=== PATIENT | male | born 1945 | race Caucasian/White ===

== ENCOUNTER 2020-01-05 07:10 | Day surgery (SDC) | payer OTHER ==
[~2020-01-05] VITALS: Ht 180.3 cm; Wt 88.9 kg
--- NOTE | ~2020-01-05 | O ---
[facility] [place] [address] OPERATIVE REPORT Name: VIVIAN ST Room #: 150-13 [facility]#: [id number] Admission: 01/05/20 Attend Phys: Dev Florez MD Discharge: Date of : 43 Report #: [id number] THIS REPORT FOR: cc: Tk Hickman, Tk Arzola,Dev Ramirez MD ~ CC: Tk Fletcher DATE OF SERVICE: 01/05/2020 PREOPERATIVE DIAGNOSIS: Lesion of right lower lid with right lower lid ectropion. POSTOPERATIVE DIAGNOSIS: Lesion of right lower lid with right lower lid ectropion. PROCEDURES: 1. Excision of lesion of right lower lid with myocutaneous flap repair of defect. 2. Right lower lid ectropion repair by flap. SURGEON: Dev Florez MD. CUSTODIAN [employer]OD BANK: None. ANESTHESIA: MAC. COMPLICATIONS: None. INDICATIONS FOR SURGERY: This pleasant 74-year-old gentleman has what appears to be a benign lesion in his medial left lower lid below his inferior canaliculus. The lesion is of considerable size and inducing a mechanical distraction of the lid. In addition, the patient independently has a right lower lid ectropion. He presents today for excision of the right lower lid lesion with repair of that defect along with a right lower lid ectropion repair by myocutaneous advancement flap. Informed consent was obtained to include but not limited to the potential risk for loss of vision, bleeding, infection, failure to improve the problem, and the potential need for further surgery or treatment. DESCRIPTION OF PROCEDURE: The patient was taken to the operating room where 2% Xylocaine with epinephrine mixed with equal parts of 0.75% Marcaine with [place] [address] [address] OPERATIVE REPORT Name: VIVIAN ST Room #: 150-13 [facility]#: [id number] Admission: 01/05/20 Attend Phys: Dev Florez MD Discharge: Date of : 43 Report #: [id number] was administered transcutaneously and transconjunctivally to the right lower lid, the right medial canthus, the right lateral canthus, the right cheek and the right infratemporal fossa. The patient was subsequently prepped and draped in the usual sterile fashion. Attention was first turned to the lesion in the medial right lower lid. An incision was made around the lesion 360 degrees allowing access to its capsule. The capsule was then isolated around the entire perimeter of the lesion ensuring that the entire lesion was removed. It was excised en-bloc. Diligent use of pinpoint monopolar cautery was used to maintain hemostasis. A flap was then developed inferomedially to be rotated superolaterally to correct that defect. The flap was secured with interrupted 6-0 plain gut sutures. The right lateral canthus was then clamped with a Toure clamp. A sharp canthotomy and cantholysis was then performed. The redundant lid margin and the redundant tarsal plate was then amputated. A myocutaneous flap was then developed inferiorly down to the malar eminence and hemostasis re-achieved. That flap was then elevated and resuspended with interrupted 5-0 Prolene sutures suspending from periosteum. The skin was then closed with interrupted 6-0 plain gut sutures. The wound was then dressed with erythromycin ophthalmic ointment. The patient subsequently transported to the recovery area having tolerated the procedure well with no anesthetic or operative complications being noted. By: [id number] Dev Florez MD /nt
[~2020-01-05 07:10] MED LIST: ASA81BEC PO; CALCIUM CARBON600 M1 PO; CARVEDILOL6.25 M1 PO; DERMACINRX5000 UNIT PO; FUROSEMIDE 40 M40 M1 PO; GLIPIZIDE5 MG PO; GLUCOSAMINE-CH1 EA33 PO; GRALISE600 MG PO; I-CAPS AREDS S1 EACH PO; LIPITOR 40 MG T40 M1 PO; METFORMIN HCL1000 MG PO; OMEGA 3-6-9 11200 M1 PO; RA VIT B-12 1,1 EACH SUBLING; SUPER B-50 COM1 EACH PO; TAMSULOSIN HCL0.4 MG PO; TURMERIC PO; VITAMIN C1000 MG PO; WARFARIN SODIUM3 MG PO; ZINC50 M1 PO
[2020-01-05 08:42] VITALS: BP 138/76
--- NOTE | 2020-01-10 12:06 | PATH ---
[facility] [place] [address] PATHOLOGY RPT PROCEDURE Name: VIVIAN ST Room #: DEP [facility] M.R.#: [id number] Admission: 01/05/20 Date of : 43 Discharge: 01/05/20 Report #: [id number] Path Case #: [id number] [facility] Accession Number: [id number] . 01 Material submitted: . eyelid - RIGHT LESION LOWER LID. Modifiers: right, lower . 01 Clinical history: . RIGHT LOWER LID LESIOIN, RIGHT LOWER LID ECTROPION, COVID TEST . 02 Diagnosis: Right lower eyelid, excision: - Epidermal inclusion cyst. - Negative for malignancy. (MAP/db; 01/06/20) LBQ 01/06/2020 1455 Local . 02 Electronically signed: . Miguel Ángel Melgoza MD, Pathologist NPI- [id number] . 01 Gross description: . Received in formalin labeled "Vivian [address], right lesion lower lid" is a sheehan-white cyst/nodule measuring 0.6 x 0.5 x 0.5 cm. The specimen is bisected to reveal sheehan-white friable material. The specimen is submitted entirely in cassette A1. ([facility]; 01/05/2020) [facility] 01/05/2020 1906 Local . 02 Pathologist provided ICD-10: L72.0 . 02 CPT . 415829 Specimen Comment: A courtesy copy of this report has been sent to [phone], [phone] Specimen Comment: [phone], Specimen Comment: Report sent to , , / Performed at: [address], [place] [id number] MD Mike Gould MD Phone: [phone] Performed at: [address] [id number] MD Kiara Polanco MD Phone: [phone]
== END 2020-01-05 11:05 | disposition home or self-care (01) ==
LOC: OR 07:10 → TBA 07:10 → OR 07:39
PROVIDERS: ATTEND Ophthalmology
DX: L72.0 Epidermal cyst (principal); H02.102 Unspecified ectropion of right lower eyelid; E11.9 Type 2 diabetes mellitus without complications; Z98.890 Other specified postprocedural states; Z79.899 Other long term (current) drug therapy; Z87.891 Personal history of nicotine dependence; Z20.828 Contact with and (suspected) exposure to other viral communicable diseases; Z79.82 Long term (current) use of aspirin
CPT/HCPCS: 50010; 50101; 50386; 50398; 51636; 56527; 56531; 62110; 62850; 70005